=== PATIENT | female | born 1985 | race Caucasian/White ===

== ENCOUNTER → 2020-04-27 | Day surgery (SDC) | payer OTHER ==
[~2020-04-27] MED LIST: ALPR1TAB2 PO; AMIT25TA PO; ARIP5TAB13 PO; IV RINGERS,LACTATED 1000ML 1,000 ML IV SCH; PROPOFOL 10 MG/ML (20ML) VIAL. IV ONE; VENL150C PO; ZOLP10TA PO
--- NOTE | 2020-04-27 15:15 | PDOC4 ---
PROCEDURE Procedure EGD with biopsies/colonoscopy Indication: Upper abd pain/abnormal CT, query colitis Meds: per anesthesia Findings: E--partly-healed grade B at 38cm. G--Some retained food, body. Striped erythema antrum; biopsies of antrum and fundus. D--Normal to second portion. NAIDA--Normal --'Scope advanced to cecum; unable to enter TI due to angulation. Mucosa normal throughout. Some stool; most could be suctioned. No tics, polyps, etc. seen. Retroflex in rectum normal. Jolene. well. IMP: GERD Possible gastroparesis IBS REC: continue current meds Await biopsies. GES in future. Resume diet. SADIE CANNON MD Apr 27, 2020 15:15
[2020-04-27 15:43] VITALS: BP 118/77
--- NOTE | 2020-04-30 17:07 | PATHOLOGY ---
[facility] Accession Number: [id number] . 01 Material submitted: . PART A: stomach - ANTRAL BIOPSY PART B: stomach - FUNDAL BIOPSY . 01 Clinical history: . UPPER ABDOMINAL PAIN . 02 Diagnosis: A. Gastric biopsies, antrum: - Reactive gastropathy. . B. Gastric biopsy, fundus: - Superficial congestion and focal slight chronic inflammation. . (JPM:engineering director; 04/30/2020) MBR 04/30/2020 1336 Local . 02 Comment: Sections of the gastric antral biopsy show congestion, mild foveolar hyperplasia, and only slight chronic inflammation. A properly controlled immunoperoxidase stain for Helicobacter is negative for Helicobacter organisms. The findings are consistent with a mild reactive gastropathy. . Sections of the gastric fundus biopsy show superficial mucosal congestion and focal slight chronic inflammation. A properly controlled immunoperoxidase stain for Helicobacter is negative for Helicobacter organisms. . (JPM:engineering director; 04/30/2020) . . Special stains performed: immunoperoxidase stain for Helicobacter on A1 and B1. . 02 Electronically signed: . John Ramos MD, Pathologist NPI- [id number] . 01 Gross description: . A. The specimen is received in formalin, labeled "Germaine Goreer, antral biopsy". Received are two segments of pale olsen soft tissue ranging in size from 0.2 to 0.5 cm in maximum dimensions. The specimen is submitted entirely in cassette A1. . B. The specimen is received in formalin, labeled "Germaine Robbie, fundus biopsy". Received is a segment of pale olsen soft tissue measuring 0.9 cm in maximum dimensions. The specimen is submitted entirely in cassette B1. (CAA; 04/29/2020) QAC/QAC 04/29/2020 1430 Local . 02 Pathologist provided ICD-10: K31.9, K29.50 . 02 CPT . 929584, [id number], [id number] Specimen Comment: A courtesy copy of this report has been sent to [phone], [phone] Specimen Comment: [id number] Specimen Comment: Report sent to / DR HAND Performed at: 01 [facility] [address], [place] [id number] MD Theron Ball MD Phone: [phone] Performed at: 02 [facility] [address], [place] [id number] MD John Ramos MD Phone: [phone]
== END | disposition home or self-care (01) ==
LOC: ENDOS 14:00
PROVIDERS: ATTEND Internal Medicine Gastroenterology
DX: R10.10 Upper abdominal pain, unspecified (principal); K58.9 Irritable bowel syndrome, unspecified; R93.3 Abnormal findings on diagnostic imaging of other parts of digestive tract; K21.00 Gastro-esophageal reflux disease with esophagitis, without bleeding; K31.89 Other diseases of stomach and duodenum; F41.9 Anxiety disorder, unspecified; F32.9 Major depressive disorder, single episode, unspecified; Z79.899 Other long term (current) drug therapy; Z98.890 Other specified postprocedural states; Z88.1 Allergy status to other antibiotic agents; Z88.8 Allergy status to other drugs, medicaments and biological substances; Z20.828 Contact with and (suspected) exposure to other viral communicable diseases
CPT/HCPCS: 43239; 45378; 81025; 87426; 88305; 88342; C9803; J2704; U0003